=== PATIENT | male | born 1970 | race Caucasian/White ===

== ENCOUNTER 2022-12-20 08:05 | Outpatient (CLI) | payer BC, SELFPAY ==
--- NOTE | 2022-12-20 08:15 | ECG_ITS ---
Measurements Intervals [place] Rate: 60 P: 38 OH: 195 QRS: -37 QRSD: 118 T: -3 QT: 420 QTc: 420 Interpretive Statements SINUS RHYTHM MARKED LEFT AXIS DEVIATION [QRS AXIS < -30] MODERATE INTRAVENTRICULAR CONDUCTION DELAY [110+ ms QRS DURATION] ABNORMAL ECG NO PREVIOUS ECG AVAILABLE FOR COMPARISON Electronically Signed On 12-20-2022 8:52:34 CDT by Gunnar Feliciano M.D.
[2022-12-20 08:47] LABS: Hemoglobin 15.5 g/dL (14.0-18.0); Mean Corpuscular Hemoglobin 31.2 pg (26-34); Mean Corpuscular Volume 94.6 fl (80-100); Mean Platelet Volume 9.9 fl (7.4-10.4); Platelet Count Result 240 k/mm3 (150-375); Red Blood Count 4.97 M/mm3 (4.6-6.20); Red Cell Distribution Width 12.3 % (11.5-14.5); White Blood Count 4.4 K/mm3 (4.5-10.0)
[2022-12-20 08:58] LABS: INR 0.9; Prothrombin Time 12.8 Seconds (11.1-14.7)
[2022-12-20 08:59] LABS: Partial Thromboplastin Time 29.9 SECONDS (22.3-36.8)
[2022-12-20 09:00] LABS: Appearance Urine Clear (Clear); Bilirubin Urine Negative (Negative); Blood Urine Negative (Negative); Color Urine Yellow (Yellow); Glucose Urine UA Negative (Negative); Ketones Urine Negative (Negative); Leukocyte Esterase Ur Negative LEU/UL (Negative); Nitrate Urine Negative (Negative); Protein Urine Negative (Negative); Specific Grav Ur 1.026 (1.001-1.035); pH Urine 5.5 (5.0-9.0)
[2022-12-20 09:02] LABS: Add Urine Microscopic? NO
[2022-12-20 09:11] LABS: Anion Gap 5 mmol/L (8-16); Blood Urea Nitrogen 13 mg/dL (9-20); Calcium 9.2 mg/dL (8.4-10.2); Carbon Dioxide 31 mmol/L (22-30); Chloride 104 mmol/L (98-107); Estimated Glomerular Filt Rate > 60; Glucose 95 mg/dL (65-110); Sodium 140 mmol/L (137-145)
== END 2022-12-20 08:06 | disposition home or self-care (01) ==
LOC: ANHSURGERY 08:09
PROVIDERS: PCP Internal Medicine; Visit Provider Neurological Surgery
DX: M47.812 Spondylosis without myelopathy or radiculopathy, cervical region (principal); Z01.818 Encounter for other preprocedural examination; R94.31 Abnormal electrocardiogram [ECG] [EKG]
CPT/HCPCS: 36415; 80048; 81003; 85027; 85610; 85730; 86850; 86900; 86901; 93005

== ENCOUNTER 2022-12-23 01:28 | Day surgery (SDC) | payer BC, SELFPAY ==
[2022-12-16 14:46] VITALS: BMI 36.0
--- NOTE | 2022-12-16 14:52 | PC.NURSE ---
Report to the Outpatient Waiting Room, entrance under the green pavilion located off [facility], at time 6:30 on date 12/23/22. Planned Procedure Time: 8:30. Time changes happen often and if your time is changed the preop area will call you the afternoon before. - You and your visitor will be asked to self-screen and do not enter if you have any COVID symptoms. - A mask is optional within the hospital at this time. Patients may have clear liquids (water, carbonated beverages, clear teas, apple juice) until 3 hours prior to surgery with a maximum of 20 ounces. - No food from midnight until time of surgery Take the following medications with a SIP of water the morning of surgery: N/A DO NOT STOP ANY OF YOUR OTHER PRESCRIPTION MEDICATIONS PRIOR TO SURGERY ?EXCEPT THE FOLLOWING Medications to discontinue per physician: N/A Date to take last dose: N/A Please no make-up, nail slovenian, hairspray, perfume, deodorant, or body powder the day of surgery. No jewelry (including any body piercings) or valuables the day of surgery, leave them at home. Please take a shower or bath the night before, or the morning of, surgery with an antibacterial soap. Wear comfortable, loose fitting clothing. - Jewelry must be removed prior to entering the operating room. Rings and piercings that are not removed may be cut off. - The hospital will not accept responsibility for valuables. - Please leave all valuables, including medications, at home the day of surgery. If you are going home after surgery, a licensed screw driver operator must drive you home. - NO public transportation without another adult if you receive anesthesia. - We recommend that an adult stay with you for 24 hours following discharge. - We also recommend that you do not drive, make important decision, drink alcoholic beverages, or take any drugs that were not prescribed by your health care provider for at least 24 hours after your discharge time. Follow any additional instructions given to you from your surgeon. If you or anyone in your household have experienced Covid symptoms in the past week, please notify your surgeon or the nurse liaison at the phone number below for possible testing. Telephone instructions given to PT - LYSSA STATON and asked if any additional questions and then verbalized understanding. Patient advised to call surgeon office or pre surgery nurse liaison [phone] if any additional questions.
[2022-12-23] VITALS (10 sets, daily range): BP systolic 117–169; BP diastolic 84–110; PULSE 54–76; RESP 14–16; TEMP 36.1–36.8; O2SAT 95–100
--- NOTE | ~2022-12-23 | XR_ITS ---
EXAMINATION: XR fluoroscopy no charge DATE: 12/23/2022 10:36 INDICATION: Foraminotomy TECHNIQUE: Single lateral fluoroscopic image of the cervical spine was obtained during procedure perf ormed by Dr. Snowden. Radiologist was not present for the imaging or procedure. The amount of fluorosco py time used during this procedure was 0.2 minutes. COMPARISON: None. FINDINGS: Surgical instrumentation and lap sponge markers project over the soft tissues posterior to the cervic al spine. Nasogastric tube and endotracheal tube in expected position extending through the pharynx. IMPRESSION: 1. Fluoroscopy utilized during a surgical neurosurgical procedure. See procedure note for further det ail. Reviewed, dictated and finalized at location A. IMPRESSION: 1. Fluoroscopy utilized during a surgical neurosurgical procedure. See procedur e note for further detail.
[2022-12-23] MEDS: LACTATED RINGERS 1,000 ML 30 ML IV CONT (08:00)
--- NOTE | 2022-12-23 08:14 | PM.IMHP ---
H&P: HPI History of Present Illness Date/Time: 12/23/22 08:14 Chief Complaint: Raf Sidhu is a 52 year old right handed male who originally presented and was seen in January 2022, with a referral from Dr Wagoner, for neck and right upper extremity pain, numbness and tingling.? Patient reports that approximately 2 months ago his symptoms to his right upper extremity and right neck with no injury or inciting event.? He reported that he was unable to bend his right upper extremity to touch his ear and had a feeling of tightness and pain to the right elbow.? He does have a longstanding history of neck pain.? He reports in 2011 he underwent a C5-6 C6-7 anterior cervical surgery, performed by Dr. Madison. He reported that he had complete resolution of his symptoms that were present to his neck and right upper extremity, up until 2 months ago.? 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 ? He denies bowel or bladder incontinence, changes in his gait or any falls. He has completed physical therapy in January of 2022, reporting no improvement of his pain or change in his strength. Raf reported initially that his pain was constant to his neck described as sharp, shooting,achy and throbbing.? He does state that with any activities to his right upper extremity, he has a feeling of fatigue to the right upper extremity.? Of note, the patient did undergo a lumbar surgery in 2016, with Dr. Brandon at [facility].? He does report that he has a unchanged, tightness to his bilateral mid and low back.? He does report that his neck is more problematic and wishes for treatment to that area at this time. ? At our initial visit we recommended the patient undergo updated MR imaging the cervical spine that shows? changes from prior ACDF at C5-6 C6-7.? There are degenerative changes at C4- 5 adjacent to the prior fusion with moderate central stenosis at this level. There is also bilateral neuroforaminal stenosis at C7-T1. ? The patient does still have the complaints in his right hand.? He again affirms that his symptoms began with the focal pain about the right elbow.? He has not had recent interventional measures.? He is? frustrated by both the neck pain but more so his right upper extremity symptoms. ? he has undergone electrodiagnostic studies with Dr. Marquez that are suggestive of a right C8 radiculopathy with both acute and chronic denervation changes.? There are mild C6 and C7 chronic denervation changes without acute? denervation. ?Raf has seen Pain Management and had an epidural steroid injection targeting C7-T1.? This did not give relief of his symptoms.? He has undergone CT imaging of the cervical spine which shows solid bony fusion across the ACDF at C5-6 and C6-7.? AP lateral and dynamic plain x-rays show no evidence of dynamic instability.? The patient is increasingly frustrated by his weakness, much more so than his pain.? He does not feel that his symptoms have progressed since late 2021 but he is concerned about them all the same and is inclined to pursue surgery PMFSH Past Medical History Medical History Cervical radiculopathy Cervical spondylosis Surgical History Surgical History History of laminectomy (~2011) Social History Social History (Updated 10/22/22 @ 13:25 by Heaven Smith) Smoking status: Never smoker Alcohol intake: current Drinks per week: 2 Substance use: never Substance use type: does not use Lack of Transportation: No Lack of Food: Never True Current Housing: I Have Housing Concerned About Future Housing: No Difficulty Paying Gas/Electric Bills: No Difficulty Paying for Meds: No Currently Unemployed: No Education: Trade/Vocational Certificate Difficulty w/ Childcare or Family Care:
--- NOTE | 2022-12-23 08:17 | WPDHPUPDATE1 ---
History and Physical Update Update Date/Time: 12/23/22 08:17 History and Physical has been reviewed, including an updated exam of the patient. There are NO changes in the patient's condition. Risks, benefits, and alternatives have been discussed and questions answered. Patient agrees to proceed with procedure. Plan is for posterior cervical foraminotomy at C7-T1 on the right
--- NOTE | 2022-12-23 08:18 | P.PNAN_ITS ---
Anes - Initial Pre Proc Eval Procedure: Operation Date: 12/23/22 08:30 Proposed Procedures p Posterior Cervical Foraminotomy C7-T1 Right - Mirella Snowden MD Date/Time: 12/23/22 08:18 Surgeon: Mirella Snowden MD Pre Op Diagnosis: Cervical Spondylosis Patient Data Age: 52 Gender: M Height: 1.7 m Weight: 105.8 kg Last Vital Signs Temp 36.8 C 12/23/22 07:30 Pulse 64 12/23/22 07:30 Resp 16 12/23/22 07:30 BP 169/102 H 12/23/22 07:30 Pulse Ox 96 12/23/22 07:30 O2 Del Method Room Air 12/23/22 07:30 Allergies Allergy/AdvReac Type Severity Reaction Status Date / Time No Known Allergies Allergy Verified 12/23/22 08:05 Home Medications Medication Instructions Recorded Confirmed Type No Home Medications 04/16/22 12/23/22 History Patient hx anesthesia problems: none Family hx anesthesia problems: none Results Review: All pre-operative results and documents have been reviewed as part of the pre-operative evaluation. [facility] Past Medical History Medical History Cervical radiculopathy Cervical spondylosis Surgical History Surgical History History of laminectomy (~2011) Social History Social History Smoking status: Never smoker Alcohol intake: current Drinks per week: 2 Substance use: never Substance use type: does not use Lack of Transportation: No Lack of Food: Never True Current Housing: I Have Housing Concerned About Future Housing: No Difficulty Paying Gas/Electric Bills: No Difficulty Paying for Meds: No Currently Unemployed: No Education: Trade/Vocational Certificate Difficulty w/ Childcare or Family Care: No Living arrangements: with family Spiritual care concerns: No Anes - Eval Final PreProcedure Day of Procedure 12/23/22 08:18 Patient weight: obese Heart: regular rate and rhythm Lungs: clear to auscultation Airway: Mallampati scale class III Neurological: alert and oriented Last oral intake: >/= 8 hours ASA classification: III Emergent: no Anesthetic plan: proceed Anesthesia type and monitoring: general ETT and standard monitoring Results Review: All pre-operative results and documents have been reviewed as part of the pre- operative evaluation. Informed Consent: The patient's anesthetic plan and its attendant risks and benefits were discussed with the patient/family/POA. Questions were solicited and answers provided to the satisfaction of the patient/family/POA.
[2022-12-23] MEDS: ceFAZolin 2 GM/D5W 50 ML 2 GM/50 ML BAG IVPB (08:47)
[2022-12-23] MEDS: BUPIVACAINE/EPINEPHRINE 0.5% 50 ML VIAL 20 ML INFILTRATE (09:50)
[2022-12-23] MEDS: methylPREDNISolone ACETATE 40 MG/ML VIAL XX (10:08)
[2022-12-23] MEDS: BUPivacaine HCL 0.25% PF 30 ML VIAL INFILTRATE (10:21)
--- NOTE | 2022-12-23 10:40 | W.PM.PROC2 ---
Procedure Note - Detailed Date of Procedure 12/23/22 Pre-op Diagnosis Cervical Spondylosis Post-op Diagnosis Same Procedure Performed posterior cervical foraminotomy C7-T1, right Surgeon Mirella Snowden MD Anesthesia General Indications Mr Raf Sidhu is a 52 year old right handed male who presents, with a referral from Dr Wagoner, for initially neck and right upper extremity pain, numbness and tingling. ? his clinical symptoms as well as his examination findings are consistent with a right C8 radiculopathy and that the setting of neuroforaminal stenosis at C7-T1 adjacent to a prior ACDF from C5 through C7..? Electrodiagnostic studies do suggest the right C8 radiculopathy with acute and chronic denervation features. 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 it would be reasonable to consider surgical intervention.? We have discussed? that in the absence of dynamic instability with solid bony fusion across the prior fusion construct, surgery would entail a right foraminotomy at C7-T1.? We have discussed that the primary goal of surgery would be to address the patient's subjective and objective weakness.? We have discussed that with weakness present for over 6 months I cannot guarantee recovery of function but that surgery would offer a best chance for functional recovery, Xavier is inclined to pursue surgery. I have discussed the indications as well as the risks of surgery including but not limited to bleeding, infection, CSF leak, numbness, weakness, paralysis, stroke, coma, even . We have discussed the fundamentals of the surgical procedure as well as the typical recovery from surgery. He indicates understanding and asks us to proceed with surgery, specifically a posterior cervical foraminotomy at C7-T1 on the right Description of Procedure The patient was brought into the operating room where general anesthesia was induced without incident.? appropriate monitoring and access was obtained.? The patient's head was secured in a candelario skull clamp and the patient was turned into a prone position on the operating room table. The skull clamp was secured to the OR table.? All extremities were padded. The harvey's cervical spine was positioned and the C7-T1 level was identified using fluoroscopy. Given the patinet's shoulders, this level was identified using more superiorl levels as a guide. The patient's posterior cervial region was prepped and draped sterilely. A time out was performed. A linear incision was made using a #10 blade scalpel.? Dissection was carried down to the spinous process and the paraspinal muscle was dissected off of the lamina of C5, C6 and C7 as well as T1 using electrocautery on the right.? Self retaining retractors were advanced.? A curette was placed at the C5-6 joint space and localization was confirmed with fluoroscopy. The C6 and C7 laminae were then identified caudally to the C5-6 space and the C7-T1 level was confirmed. Attention was turned to the decompression portion of the procedure.? A trough was drilled laterally in the lamina at C7-T1 and attention was then turned to the foraminal decompression and foraminotomies were performed at C7-T1 using a combination of the high speed drill and kerossen punches.?The exiting C8 nerve root was visualized in the foramen? At the completion of the decompression the central canal and neural foramen were patent at C7-T1 on the right. The wound was copiously irrigated.? Hemostasis was achieved.? ? Again hemostasis and irrigation were performed.? The self retaining retractors were removed.? The paraspinal muscle and fascia was closed with interrupted absorbable suture, and the dermis was also. The skin was closed with surgical glue.? The patient was awakened by anesthesia and taken to recovery in stable condition.? I was present for the entirety of the procedure.? There were no complication
[2022-12-23] MEDS: fentaNYL CITRATE INJ (*CRX) 100 MCG/2 ML VIAL 25 MCG IV PUSH ×6 (11:06→11:51)
[2022-12-23] MEDS: oxyCODONE HCL (*CRX) 5 MG TAB IR PO (12:27)
== END 2022-12-23 13:37 | disposition home or self-care (01) ==
PROVIDERS: PCP Internal Medicine; Visit Provider Neurological Surgery
PROC: (CPT 63045; principal; 2022-12-23 08:30)
DX: M43.02 Spondylolysis, cervical region (principal); E66.9 Obesity, unspecified; Z68.36 Body mass index [BMI] 36.0-36.9, adult
CPT/HCPCS: 63045; 99199; A9270; J0330; J0690; J1030; J1100; J1170; J2250; J2371; J2405; J2704; J3010; J7120